=== PATIENT | female | born 2000 | race Caucasian/White ===

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

== ENCOUNTER 2021-01-02 11:50 | Inpatient (IN) | payer OTHER, SELFPAY ==
[2021-01-02] VITALS (11 sets, daily range): BP systolic 99–117; BP diastolic 52–64; PULSE 62–85; TEMP 36.6–37.3; O2SAT 97–99; BMI 24.3
[2021-01-02] MEDS: Lactated Ringers 1,000 ML 50 ML IV (12:45)
[2021-01-02 12:55] LABS: Absolute Lymphocyte Count 1.89 X10^3/uL (0.83-4.51); Absolute Neutrophil Count 8.4 X10^3/uL (2.0-7.7); Basophil# 0.03 X10^3/uL; Basophil% 0.3 % (0-1); Eosinophils% 0.9 % (0-5); Hematocrit 39.3 % (37-47); Hemoglobin 12.9 g/dL (12.0-15.0); Lymphocyte # 1.89 X10^3/ul (0.83-4.51); Lymphocyte % 16.8 % (19-41); Mean Corp Hgb Conc 32.8 g/dL (32-36); Mean Corpuscular Volume 91.4 fL (81-99); Mean Platelet Vol. 11.6 fl (6.2-12.0); Monocyte# 0.73 X10^3/uL; Monocyte% 6.5 % (0-10); NRBC Flagged by Analyzer 0 % (0-5); Neutrophil # 8.36 X10^3/uL (2.7-7.7); Neutrophil % 74.4 % (47-70); Platelet Count 187 K/mm3 (150-450); RBC Distribution Width CV 14.3 % (11.6-14.6); RBC Distribution Width SD 47.8 fl (35.1-43.9); White Blood Count 11.2 K/mm3 (4.4-11.0)
--- NOTE | 2021-01-02 17:31 | HP.PCM.OB_ITS ---
HPI - General General Date of Admission: 01/02/21 HPI Narrative REGINA SOTO, is a 20 F at 39 weeks 3 days who presents in early labor to labor and delivery. While on unit, progressed to 4 cm and electing to stay. Irregular contractions and increased pain. No leakage of fluid or vaginal bleeding. Good movement. uncomplicated and result of failure of control pill. Maternal Data Information Final MARKIE: 01/06/21 Final MARKIE Source: US <20 weeks Gestational age: 39w3d PFSH PFS Home Medications [id number] [] 1 tab PO 01/02/21 [History Last Taken 01/01/21 21:00] Allergy/AdvReac Type Severity Reaction Status Date / Time No Known Allergies Allergy Verified 01/02/21 09:43 Family History Uncle Alzheimer disease Social History (Updated 09/01/20 @ 14:37 by Arlyn Berry PA, PA) number of children: 0 current occupational status: employed current occupation: [employer] Smoking Status: Former smoker alcohol intake: never substance use type: does not use seatbelt use: always do you feel safe at home: Yes History Elective abortions Hx Para 0 Spontaneous abortions Hx # Term Pregnancies Ectopic pregnancies Hx # Pregnancies Multiple births # of living children NST FHR Rate Baby A Baseline: 135 Variability:: Moderate Accelerations:: 15 x 15 Decelerations:: None FHR Category:: Category I Uterine Activity:: Every 3-5 minutes, mild ROS Constitutional Constitutional: Reports systems reviewed and no addt'l complaints, except as documented; Denies headache(s) Eyes Eyes: Denies acute decrease in peripheral vision, blurry vision or change in vision ENT HEENT: Reports systems reviewed and no addt'l complaints, except as documented Cardiovascular Cardiovascular: Denies chest pain or dizziness Respiratory/Chest Respiratory/Chest: Denies cough, dyspnea, dyspnea on exertion, shortness of breath at rest or shortness of breath with exertion Gastrointestinal Gastrointestinal: Denies abdominal pain, diarrhea, nausea or vomiting Genitourinary Genitourinary: Denies abdominal discomfort or movement Musculoskeletal Musculoskeletal: Denies limited range of motion Integumentary Integumentary: Reports systems reviewed and no addt'l complaints, except as documented Neurologic Neurologic: Reports systems reviewed and no addt'l complaints, except as documented Psychiatric Psychiatric: Reports systems reviewed and no addt'l complaints, except as documented Endocrine Endocrinology: Reports systems reviewed and no addt'l complaints, except as documented Hematologic/Lymphatic Hematologic/Lymphatic: Reports systems reviewed and no addt'l complaints, except as documented Allergic/Immunologic Allergic/Immunologic: Reports systems reviewed and no addt'l complaints, except as documented Vital Signs Vital Signs Vital Signs: 01/02/21 09:30 01/02/21 13:49 01/02/21 13:50 Temperature 98.6 F 98.4 F Temperature Source Temporal Pulse Rate 73 78 Blood Pressure 114/63 103/58 L BP Systolic 114 103 BP Diastolic 63 58 Pulse Ox 97 Weight Weight: 155 lb 10.342 oz Body Mass Index (BMI) 24.3 Physical Exam Const alert and oriented x3 General Appearance: cooperative Orientation / Consciousness: awake, oriented to person, oriented to place and oriented to time Exam Limitations: no limitations HEENT normocephalic Head and Scalp: normal to inspection, normocephalic and atraumatic Face and Sinus: normal facial exam Eyes General Eye: normal appearance of both eyes Neck full ROM Chest Chest: symmetrical chest wall rise Resp normal respiratory effort and normal air movement Auscultation: clear to auscultation bilaterally Cardio regular rate, regular rhythm, S1 normal heart sound, S2 normal heart sound, no murmurs, no rub, no gallops and no clicks GI normal to inspection, nondistended, normoactive bowel sounds and non-tender appearance of the vagina normal Bladder / Kidney Exam: no CVA tenderness Manual OB Exam: presentation cephalic, dilated 5cm, effaced 70 and station -1 Back/Spine normal ROM Extremity normal to inspection and full ROM Skin no rashes or lesions noted Neuro oriented x3, CN's II-XII intact bilaterally and moves all extremities Sensorium / Orientation: awake, alert and oriented to person Motor Exam: clonus absent Deep Tendon Reflexes: Rt Patellar (L4): 2+ and Lt Patellar (L4): 2+ Labs Labs Labs: Blood Type O NEGATIVE Antibody Screen NEGATIVE Hct 39.3 % (37-47) Hgb 12.9 g/dL (12.0-15.0) C.trachomatis DNA (PCR) Negative (Negative) GBS positive RPR negative Urine drug screen negative Rubella negative HBsAg negative HIV negative O negative, antibody screen negative GC/CT negative Hep C negative Assessment & Plan (1) Active labor at term: (2) Positive GBS test: PLAN: 1)Admit to labor and delivery 2) IV and routine labs 3) GBS prophylaxis 4) COVID negative 5) Pain management upon request. Would like unmedicated . 6) Discussed with patient early labor upon admission and progression to 5cm. Offered augmentation with pitocin after reviewing r/b/a. Would like to start pitocin for augmentation 7) notified of patient admission 8)Declines LARC
[2021-01-02] MEDS: Oxytocin 30 units/NS 500 ml 30 UNITS/500 ML IV.SOLN IV (17:54)
[2021-01-02] MEDS: Lactated Ringers 1,000 ML 200 ML IV (23:26)
[2021-01-03] VITALS (24 sets, daily range): BP systolic 98–123; BP diastolic 48–66; PULSE 71–121; RESP 16; TEMP 36.6–37.9; O2SAT 96–99
[2021-01-03] MEDS: Oxytocin 30 units/NS 500 ml 30 UNITS/500 ML IV.SOLN 334 UNITS IV (02:38)
--- NOTE | 2021-01-03 03:11 | EX.PCM.OBRPT ---
Assessment & Plan (1) Vaginal delivery: (2) Periurethral laceration, delivered, current hospitalization: Maternal Data Information Final MARKIE: 01/06/21 Final MARKIE Source: US <20 weeks Gestational age: 39w4d Vaginal Delivery Maternal Presentation Maternal Presentation: Active Labor Maternal Presentation: Presented to labor and delivery in early labor. Progressed to active labor. Augmentation with pitocin. Operative Information Date of Procedure: 01/03/21 Pre-Operative Diagnosis: Active Labor Post-Operative Diagnosis: Surgery / Procedure Performed: Spontaneous Vaginal Delivery Type of Anesthesia: Local with 1% Lidocaine Estimated Blood Loss: 200 ml Time of Delivery: 02:37 Findings Description of Procedure: Progressed to complete with strong urge to push. Nitrous for pain management. of viable female infant over bilateral periurethral lacerations, APGARS 8,9. Infant head delivered with CANx1, delivered through, body immediately forthcoming. placed on maternal abdomen, strong cry. Mouth and nares suctioned for secretions. Pitocin started for active 3rd stage management. Placenta delivered with expression, intact via khang, 3 vessel cord. Perineum inspected and revealed bilateral periurethral lacerations, repaired with 3.0vicryl rapide and 1% lidocaine. Fundus firm, hemostasis achieved, EBL 200ml. Vaginal sweep completed, sponge and instrument count correct. Mom and baby stable, planning to breastfeed. Family bonding well. notified of delivery. Amniotic Fluid Description: Clear Placental Delivery Description: Spontaneous Placenta Disposition: [facility] Cord Vessel Description: 3 Vessels Cord Entanglement: Around neck x 1, loose Nuchal Cord Compression: Without compression Infant A Gender: Female (1 minute): 8 (5 minute): 9 Delayed Cord Clamping: Yes Post Vaginal Delivery Medications Given After Delivery: IV Pitocin Episiotomy Description: None Laceration: Periurethral Extnsion/lac Complication Complications: None
[2021-01-03] MEDS: 0.9% Saline Lock 10 ML Syringe IV (05:16)
[2021-01-03] MEDS: Prenatal Vits Tablet 1 TABLET PO (09:40)
[2021-01-04 04:00] VITALS: BP 106/56; PULSE 72; RESP 16; TEMP 37.2; O2SAT 96
[2021-01-04 04:14] VITALS: BP 106/56; PULSE 74; TEMP 37.2; O2SAT 94
[2021-01-04] MEDS: Ibuprofen 600 MG Tablet PO (04:32)
[2021-01-04 08:39] VITALS: TEMP 36.4
[2021-01-04 08:40] VITALS: BP 113/66; PULSE 85
[2021-01-04 08:50] VITALS: BP 113/66; PULSE 81; RESP 14; TEMP 36.4; O2SAT 98
--- NOTE | 2021-01-04 10:14 | PCM.PN.BLA ---
Progress Note Pain well controlled, average lochia. Urinating and tolerating regular diet without difficulty. Has had a bowel movement without difficulty. Physical Exam Const alert and no apparent distress Narrative: Fundus firm, below umbilicus. Assessment & Plan Assessment/Plan (1) Periurethral laceration, delivered, current hospitalization: (2) Vaginal delivery: PLAN: PPD#1 doing well routine care and doing well desires d/c home today
--- NOTE | 2021-01-04 10:19 | PCM.DC.SUM ---
Providers Date of Admission: 01/02/21 Primary Care Physician: Dr. Crys Armenta MD Reason For Visit: VAG Diagnosis Discharge Diagnosis (1) Periurethral laceration, delivered, current hospitalization: Status: Acute Code(s): O71.82 - Other specified trauma to perineum and vulva (2) Vaginal delivery: Status: Acute Code(s): O80 - Encounter for full-term uncomplicated delivery Medications at Discharge Home Medications [id number] 1 tab PO 01/02/21 ibuprofen 600 mg PO Q6H PRN PRN #60 tablet 01/04/21 Weight / BMI Weight Weight: 70.6 kg Body Mass Index (BMI) 24.3 ABG / Lab / Microbiology Data Result Diagrams: 01/02/21 12:45 Microbiology: Microbiology 01/02/21 12:35 Mucosa - Nose SARS-CoV-2 Antigen (Rapid) - Final D/C Instructions May resume sexual activity in: 6 weeks Please Follow Up With: Blessing Michael MD When: Follow up with our office in 1-2 and 6 weeks or as needed. [phone] Meaningful Use Info Meaningful Use Diagnoses (Choose all that apply): None applicable Discharge Plan Admission Admit Date/Time: 01/02/21 11:50 Primary Reason for Your Visit: labor and delivery Attending Provider: Jeanette Keane Primary Care Provider: Crys Armenta Instructions Patient Instructions: After a Vaginal Discharge Orders/Prescriptions Prescriptions: New ibuprofen [ibuprofen] 600 MG tablet 600 mg PO Q6H PRN PRN (Reason: pain) Qty: 60 RF: 1 Continued [id number]-[id number]-Eg-FA 1 mg Tablet 1 tab PO RF: 0 Referrals / Follow Up: Crys Armenta MD [Primary Care Provider] - Disposition Disposition (needs filled in before D/C Order can be placed): Home, self care
--- NOTE | 2021-01-09 10:11 | CM.ED ---
JAILYN Note Late Entry for 01/04/21 JAILYN called Rama in [facility]. Rama was public safety officer. She said that patient's RN voiced no issues or concerns with patient. JAILYN remained available all day for support or resources if needed. JAILYN did not receive any follow up calls from patients RN or WP RN. Plan: Home [facility]
== END 2021-01-04 12:00 | disposition home or self-care (01) | DRG 807 ==
LOC: WPOUT 11:53 → WP 11:53
PROVIDERS: Admitting Provider Advanced Practice Midwife; PCP Pediatrics; Referring Provider Advanced Practice Midwife; Visit Provider Advanced Practice Midwife
DX: O99.824 Streptococcus B carrier state complicating childbirth (principal); O69.81X0 Labor and delivery complicated by cord around neck, without compression, not applicable or unspecified; O71.82 Other specified trauma to perineum and vulva; Z20.822 Contact with and (suspected) exposure to COVID-19; Z87.891 Personal history of nicotine dependence; Z3A.39 39 weeks gestation of pregnancy; Z37.0 Single live birth
CPT/HCPCS: 59025; 59050; 85025; 85461; 86850; 86870; 86900; 86901; 87426; 90384; 99218; J7120; A4216; G0378; J2790

== ENCOUNTER 2022-03-29 23:22 | Emergency (ER) | payer OTHER, SELFPAY ==
[2022-03-29 23:23] VITALS: BP 110/52; PULSE 69; RESP 18; TEMP 36.6; O2SAT 98; BMI 19.5
--- NOTE | 2022-03-29 23:53 | EX.ED.GENINJ ---
HPI History of Present Illness Chief Complaint: Bite Informant: patient Onset/Context/Timing Onset: Today Mechanism/Context: other (Dog bite) Quality of Pain: Dull and Aching Location: Right cheek and chin Worsened by: Nothing Relieved by: Nothing Associated Symptoms Associated Symptoms: Negative for Weakness, Loss of function, Inability to ambulate, Loss of consciousness or Amnesia Narrative Narrative: Patient presents with a dog bite to her chin and right cheek that occurred today. Patient states she was bitten by her friend's dog. Patient states the dog was acting normally before she was bitten and after she was bitten. Patient states the dog's immunizations were up-to-date. Patient states her last tetanus was within 5 years. Patient states the bite angie on the right cheek appear to go fairly deep. Patient is unsure if she needed sutures. Patient admits to some tingling around the wound. Patient denies any other injuries. [facility] Medical History (Updated 03/30/22 @ 00:01 by Nisha Hayes) Anemia Physical exam, pre-employment Home Medications kclkijap-oaw-Zr-FA 1 mg tablet 1 tab PO 01/02/21 [History Last Taken 01/01/21 21:00] amoxicillin 875 mg-potassium clavulanate 125 mg tablet 875 mg PO Q12H #20 TABLETS 03/29/22 [Rx Last Taken Unknown] Allergy/AdvReac Type Severity Reaction Status Date / Time No Known Allergies Allergy Verified 03/29/22 23:26 Family History Uncle Alzheimer disease Surgical History no surgical history no surgical history Social History number of children: 0 current occupational status: employed current occupation: [employer] Smoking Status: Former smoker alcohol intake: never substance use type: does not use seatbelt use: always do you feel safe at home: Yes ROS ROS ED Constitutional Constitutional ED: Denies chills or fever(s) Eyes Eyes: Denies blurry vision or change in vision ENT ENT ED: Denies rhinorrhea or sore throat Cardiovascular Cardiovascular: Denies chest pain or palpitations Respiratory/Chest Respiratory/Chest: Denies cough or dyspnea Gastrointestinal Gastrointestinal: Denies nausea or vomiting Genitourinary Genitourinary ED: Denies dysuria or hematuria Musculoskeletal Musculoskeletal: Denies back pain or neck pain Integumentary Denies abscess or rash Neurologic Neurologic: Denies headache(s) or weakness Allergic/Immunologic Allergic/Immunologic ED: Denies mouth swelling or urticaria EXAM Physical Exam Const Vital Signs: 03/29/22 23:23 Temperature 97.8 F Temperature Source Temporal Pulse Rate 69 Respiratory Rate 18 Blood Pressure 110/52 L Blood Pressure Mean 71 Pulse Ox 98 Oxygen Delivery Method Room Air Positive well nourished and well developed General Appearance ED: well developed and NAD HEENT HEENT Narrative: There is a small puncture wound noted over the anterior aspect of the chin. There is minimal gapping of the wound margins. There is no bleeding. There is no edema or erythema. There is no bony crepitance or step-off. There is a 5 mm curvilinear laceration over the right cheek. There is minimal gapping of the wound margins. There is minimal bleeding. There are no foreign bodies. There is no erythema or edema around the laceration. Oral mucosa is pink and moist. There are no intraoral lacerations. Eyes PERRL and EOMs intact bilaterally Neck full ROM Neuro oriented x3, CN's II-XII intact bilaterally, moves all extremities, no focal motor deficits and no sensory deficits noted Ramiro Coma Scale: document GCS findings Spontaneous Obeys Commands Oriented 15 Sensorium / Orientation: alert Motor Exam: strength 5/5 throughout Psych mental status grossly normal PROC Procedures Lacerations Right cheek: Length: 0.5 cm Depth: Sub Q Shape: Linear Prep: Sterile Conditions and Chlorhexadine Laceration repair: Dermabond MDM MDM MDM Narrative Medical decision making narrative: The right cheek laceration was cleaned with chlorhexidine prep. The wound was closed with Dermabond skin adhesive. Patient tolerated the procedure well. Patient was instructed to keep the area clean and dry. Patient was given a dose of Augmentin here. Patient was given a prescription for Augmentin. Patient was instructed to follow-up with her primary care physician in 5 to 7 days for wound recheck. Patient understood and was agreeable with the plan. All questions were answered. Discharge Plan Triage Chief Complaint: Bite ED Provider: Jd Pardo Dx/Rx/DC Orders Clinical Impression: Dog bite of cheek, Dog bite of chin Instructions: ED Dog Bite, ED Laceration, Face: Skin Glue Prescriptions: New amoxicillin-pot clavulanate [amoxicillin-pot clavulanate] 875-125 mg tablet 875 mg PO Q12H Qty: 20 0RF No Action [id number]-[id number]-FA 1 mg Tablet 1 tab PO Primary Care Provider: Crys Armenta Referrals: Crys Armenta MD [Primary Care Provider] - 5-7 Days Disposition Disposition: Home, Self Care
[2022-03-30] MEDS: Amox/Clavulanate 875 MG Tablet PO (00:12)
[2022-03-30 00:16] VITALS: BP 114/71; PULSE 65; RESP 17; O2SAT 99
== END 2022-03-30 00:17 | disposition home or self-care (01) ==
PROVIDERS: Emergency Provider Emergency Medicine; PCP Pediatrics; Visit Provider Emergency Medicine
DX: S01.451A Open bite of right cheek and temporomandibular area, initial encounter (principal); S01.83XA Puncture wound without foreign body of other part of head, initial encounter; W54.0XXA Bitten by dog, initial encounter; Z87.891 Personal history of nicotine dependence
CPT/HCPCS: 12011; 99283

== ENCOUNTER 2022-11-04 06:18 | Emergency (ER) | payer OTHER, SELFPAY ==
[2022-11-04 06:18] VITALS: BP 121/67; PULSE 74; RESP 16; TEMP 37; O2SAT 100; BMI 19.5
[2022-11-04 06:59] LABS: Mucous, Urine 0 SEEN /hpf (<or=2+)
--- NOTE | 2022-11-04 06:59 | ED.VIS.FEGU ---
HPI HPI - Female History of Present Illness Chief Complaint: Complaint Informant: patient Narrative Narrative: Patient presents concerned that she has a UTI or a kidney infection that is incompletely around successfully treated. She states 1.5-2 weeks ago she was having discomfort in her low back and hematuria. She went to the now urgent care clinic and was prescribed cephalexin for 1 week, though symptoms went away while she was on the cephalexin, but while on it she developed dysuria. She denies any urinary frequency, vomiting, fevers or chills. She has developed no other urinary symptoms. After finishing the cephalexin the dysuria is still there, she admits she does have some discomfort when she wipes, and now she feels like the left side of her abdomen is sore and swollen. She does not have any discomfort in her low back anymore. Occasional nausea no vomiting. She attributes the discomfort in her low back, nonlateralizing, to lifting lots of things at work. She denies any vaginal discharge. States she has had some vaginal spotting lately, she has had bleeding off and on since she had her Norplant placed in June. [facility] Medical History Anemia Physical exam, pre-employment Home Medications [id number]-[id number]-FA 1 mg tablet 1 tab PO 01/02/21 [History Last Taken 01/01/21 21:00] amoxicillin 875 mg-potassium clavulanate 125 mg tablet 875 mg PO Q12H #20 TABLETS 03/29/22 [Rx Last Taken Unknown] doxycycline monohydrate 100 mg capsule 100 mg PO BID #14 CAPSULES 11/04/22 [Rx Last Taken Unknown] phenazopyridine 200 mg tablet (Pyridium) 200 mg PO BID PRN PRN Pain #8 tabs 11/04/22 [Rx Last Taken Unknown] Allergy/AdvReac Type Severity Reaction Status Date / Time No Known Allergies Allergy Verified 03/29/22 23:26 Family History Uncle Alzheimer disease Social History number of children: 0 current occupational status: employed current occupation: [employer] Smoking Status: Never smoker alcohol intake: never substance use type: does not use seatbelt use: always do you feel safe at home: Yes ROS ROS ED Constitutional Constitutional ED: Denies chills or fever(s) Eyes Eyes: Denies change in vision or diplopia ENT ENT ED: Denies rhinorrhea or sore throat Cardiovascular Cardiovascular: Denies chest pain or palpitations Respiratory/Chest Respiratory/Chest: Denies cough or dyspnea Gastrointestinal Gastrointestinal: Reports as per HPI, abdominal pain and nausea; Denies diarrhea or vomiting Genitourinary Genitourinary ED: Reports as per HPI, dysuria and low back pain; Denies flank pain, hematuria or urinary frequency Musculoskeletal Musculoskeletal: Denies back pain or neck pain Integumentary Denies abscess or rash Neurologic Neurologic: Denies headache(s), paresthesias or weakness Psychiatric Psychiatric: Denies anxiety or suicidal thoughts EXAM Physical Exam Const Vital Signs: 11/04/22 06:18 Temperature 98.6 F Temperature Source Temporal Pulse Rate 74 Respiratory Rate 16 Blood Pressure 121/67 H Blood Pressure Mean 85 Pulse Ox 100 Oxygen Delivery Method Room Air Positive well nourished and well developed Constitutional Narrative: Well-appearing thin female of stated age General Appearance ED: well developed and NAD HEENT Reports moist mucous membranes normocephalic and atraumatic Eyes PERRL and EOMs intact bilaterally Neck full ROM and supple Resp normal respiratory effort and clear to auscultation bilaterally Cardio regular rate, regular rhythm and no murmurs GI non-distended GI Narrative: Subjective mild tenderness diffusely, nonfocal, no worse on the left than the right. No guarding or rebound tenderness. No focal objective swelling or distention. Auscultation: normoactive bowel sounds Palpation: soft Narrative: External exam, chaperoned by RN, normal, mild tenderness at labia majora but there normal-appearing without any obvious external erythema or swelling or abscess. Normal clitoris. No active discharge. Back/Spine no CVA tenderness General Back: other FROM Thoracic Spine / Upper Back: Negative for thoracic spinal tenderness Lumbar Spine / Lower Back: Negative for lumbar spinal tenderness Extremity normal to inspection General Extremety ED: Negative for edema, pulses abnormal or tenderness General Extremity: Negative for edema or pulses abnormal Neuro oriented x3, CN's II-XII intact bilaterally and no sensory deficits noted Sensorium / Orientation: awake and alert Motor Exam: strength 5/5 throughout Psych mental status grossly normal Skin no rashes or lesions noted and no wounds MDM MDM MDM Narrative Medical decision making narrative: We obtained a urinalysis and a , the latter was negative, the urinalysis is consistent with infection showing significant leukocyte esterase and pyuria and bacteria. This was sent for culture, I also sent off gonorrhea and chlamydia which she does not have a history of but she is sexually active and states that she has dyspareunia, which is why we did the external exam, see above. It was unremarkable. Urethritis in the differential, vaginitis in the differential, but with her symptoms and urinalysis results I think reasonable to treat empirically with a different antibiotic, I will put her on doxycycline which will cover chlamydia as well, GC and chlamydia is pending and she will also be prescribed Pyridium. She is comfortable with that overall plan will follow-up with her [employer] if she does not get better. Lab Data Attestation: I reviewed the patient's lab results. Labs: Laboratory Results - last 24 hr 11/04/22 06:45 Urine Color Yellow Urine Clarity Sl. Cloudy Urine pH 7.0 Ur Specific [place] 1.015 Urine Protein Negative Urine Glucose (UA) Normal Urine Ketones Negative Urine Occult Blood 250 H Urine Nitrite Negative Urine Bilirubin Negative Urine Urobilinogen Normal Ur Leukocyte Esterase 500 H Urine RBC 5-10 SEEN Urine WBC 10-25 SEEN Ur Squamous Epith Cells 0-5 SEEN Amorphous Sediment 3+ Urine Bacteria 2+ Urine Mucus 0 SEEN Urine Test Negative Discharge Plan Triage Chief Complaint: Complaint ED Provider: Steve Villatoro Dx/Rx/DC Orders Clinical Impression: Acute cystitis Instructions: UTIs Women Prescriptions: New phenazopyridine [Pyridium] 200 mg tablet 200 mg PO BID PRN PRN (Reason: Pain) Qty: 8 0RF doxycycline monohydrate 100 mg capsule 100 mg PO BID Qty: 14 0RF No Action ectuqjuf-[id number]-[id number]-FA 1 mg Tablet 1 tab PO amoxicillin-pot clavulanate [amoxicillin-pot clavulanate] 875-125 mg tablet 875 mg PO Q12H Qty: 20 0RF Primary Care Provider: Crys Armenta Referrals: Crys Armenta MD [Primary Care Provider] - Blessing Michael MD [Med Staff - Active Staff] - 3-5 Days if not improving Disposition Disposition: Home, Self Care
[2022-11-04 07:07] LABS: Color, Urine Yellow (Yellow); Glucose, Dipstick Normal (Normal); Ketone-Dipstick Negative (Negative); Leukocyte Esterase-Dipstick 500 /ul (Negative); Nitrite-Dipstick Negative (Negative); Occult Blood-Urine 250 /ul (Negative); Protein-Dipstick Negative (Negative); Specific Gravity, Urine 1.015 (1.002-1.030); Urine Bilirubin Dipstick Negative (Negative); Urine Clarity Sl. Cloudy (Clear); Urine Urobilinogen Normal (Normal)
[2022-11-04 07:08] LABS: Internal QC Validated? YES +Cl - CLEAR BKGD; Pregnancy, Urine Negative Negative
[2022-11-04 07:14] LABS: Amorphous Sediment 3+; Bacteria 2+ /hpf (None Seen); Red Blood Cells-Urine 5-10 SEEN /hpf (0-5); Squamous Epithelial Cells - UA 0-5 SEEN /hpf (5-10); White Blood Cells 10-25 SEEN /hpf (0-5)
[2022-11-04 07:53] VITALS: BP 138/77; PULSE 68; RESP 15; TEMP 36.4; O2SAT 98
[2022-11-04 09:30] LABS: Chlamydia Trachomatis by PCR Negative (Negative); Neisserai gonorrhoeae by PCR Negative (Negative); Probe Check PASS; Sample Adequacy Control PASS; Specimen Processing Control PASS
== END 2022-11-04 07:54 | disposition home or self-care (01) ==
PROVIDERS: Student in an Organized Health Care Education/Training Program; Emergency Provider Emergency Medicine; PCP Pediatrics; Referring Provider Emergency Medicine; Visit Provider Emergency Medicine
DX: N30.00 Acute cystitis without hematuria (principal); R82.81 Pyuria
CPT/HCPCS: 81001; 81025; 87086; 87088; 87491; 87591; 99282

== ENCOUNTER 2023-02-11 18:07 | Emergency (ER) | payer BC, SELFPAY ==
[2023-02-11 18:08] VITALS: BP 113/64; PULSE 112; RESP 18; TEMP 36.5; O2SAT 99; BMI 17.9
--- NOTE | 2023-02-11 18:31 | EDS_ITS ---
HPI <CARMELLA Farfan - Last Filed: 02/11/23 18:37> History of Present Illness Chief Complaint: Abd Pain Narrative Narrative: 5 days ago patient started to have white vaginal discharge and low back pain. She went to urgent care yesterday and they sent STI swabs for testing. They prescribed Diflucan for possible yeast infection. Today she developed genital sores and it hurts when the urine hits them. She denies fever, chills, nausea, vomiting, or flank pain. PFSH <CARMELLA Farfan - Last Filed: 02/11/23 18:37> FORMERLY [facility], 1928–1983 Medical History Anemia Physical exam, pre-employment Home Medications [id number] 1 mg tablet 1 tab PO 01/02/21 [History Last Taken 01/01/21 21:00] amoxicillin 875 mg-potassium clavulanate 125 mg tablet 875 mg (0.875 x 875-125 mg) PO Q12H #20 TABLETS 03/29/22 [Rx Last Taken Unknown] doxycycline monohydrate 100 mg capsule 100 mg PO BID #14 CAPSULES 11/04/22 [Rx Last Taken Unknown] phenazopyridine 200 mg tablet (Pyridium) 200 mg PO BID PRN PRN Pain #8 tabs 11/04/22 [Rx Last Taken Unknown] doxycycline hyclate 100 mg capsule 100 mg PO BID 7 days #14 caps 02/11/23 [Rx Last Taken Unknown] valacyclovir 1 gram tablet (Valtrex) 1,000 mg PO BID 10 days #20 tabs 02/11/23 [Rx Last Taken Unknown] Allergy/AdvReac Type Severity Reaction Status Date / Time No Known Allergies Allergy Verified 02/11/23 18:12 Family History Uncle Alzheimer disease Social History number of children: 0 current occupational status: employed current occupation: [employer] Smoking Status: Never smoker alcohol intake: never substance use type: does not use seatbelt use: always do you feel safe at home: Yes ROS <CARMELLA Farfan - Last Filed: 02/11/23 18:37> ROS ED ROS Narrative Constitutional: Negative for fever, chills, malaise. GI: Negative for abdominal pain, nausea, vomiting. : Negative for hematuria or frequency. Skin: Positive for rash. EXAM <CARMELLA Farfan - Last Filed: 02/11/23 18:37> Physical Exam Narrative Exam Narrative: CONST: Patient sitting in no acute distress. EYES: Normal inspection. NECK: Normal inspection. RESP: No respiratory distress, CTAB. CVS: Regular rate and rhythm, no murmur, no gallop. ABD: Soft and nontender, no guarding or rebound, nondistended. Back: Normal inspection, no CVA tenderness. : Labia minor are edemetous with vesicular lesions on red base throughout the genital area consistent with herpes simplex virus. White discharge at the vaginal introitus. SKIN: Color normal, no rash, warm, dry, intact. EXTREMITIES: Normal appearance, no pedal edema. NEURO: Oriented x4. PSYCH: Normal affect. Const Vital Signs: 02/11/23 18:08 Temperature 97.7 F L Temperature Source Temporal Pulse Rate 112 H Respiratory Rate 18 Blood Pressure 113/64 Blood Pressure Mean 80 Pulse Ox 99 Oxygen Delivery Method Room Air <Dr. Cal Ibarra MD - Last Filed: 02/11/23 18:48> Physical Exam Const Vital Signs: 02/11/23 18:08 Temperature 97.7 F L Temperature Source Temporal Pulse Rate 112 H Respiratory Rate 18 Blood Pressure 113/64 Blood Pressure Mean 80 Pulse Ox 99 Oxygen Delivery Method Room Air MDM <CARMELLA Farfan - Last Filed: 02/11/23 18:37> [facility] MDM Narrative Medical decision making narrative: History gathered from patient and mom Patient has genital pain, rash and vaginal discharge. Clinical exam has diffuse vesicular rash that look consistent with herpes simplex virus. She also has white discharge. Urgent care sent out STI swabs yesterday and test was negative so these do not need repeated but I will empirically treat her with Susy acyclovir, Rocephin and doxycycline. I discussed she needs to tell her sexual partners. She has no abdominal tenderness, no flank tenderness, no systemic symptoms so I do not think she needs an ultrasound or further emergent work-up. Patient is established with [facility] and will follow-up with them. She was discharged in stable condition. Differential: Herpes simplex virus, gonorrhea, chlamydia, yeast infection, PID <Dr. Cal Ibarra MD - Last Filed: 02/11/23 18:48> MDM MDM Narrative Medical decision making narrative: History gathered from patient and mom Patient has genital pain, rash and vaginal discharge. Clinical exam has diffuse vesicular rash that look consistent with herpes simplex virus. She also has white discharge. Urgent care sent out STI swabs yesterday and test was negative so these do not need repeated but I will empirically treat her with Susy acyclovir, Rocephin and doxycycline. I discussed she needs to tell her sexual partners. She has no abdominal tenderness, no flank tenderness, no systemic symptoms so I do not think she needs an ultrasound or further emergent work-up. Patient is established with [facility] and will follow-up with them. She was discharged in stable condition. Differential: Herpes simplex virus, gonorrhea, chlamydia, yeast infection, PID Stacey: Patient was seen by me. I agree with the above extenders note, note was done by both me and the PA as I may have edited some of the above. Patient was seen by me, I evaluated her, she has herpetic lesions consistent with herpes simplex. She also has what seems like a superinfection she has vaginal discharge. She is not tolerating a pelvic exam at this time due to the pain. Regardless we will treat for both. Discharge Plan Triage Chief Complaint: Abd Pain ED Midlevel Provider: Shahnaz Tsai ED Provider: Cal Ibarra Dx/Rx/DC Orders Clinical Impression: Vaginal discharge, Genital herpes simplex Instructions: Understanding STIs, Herpes: Treatment with Medication Prescriptions: New doxycycline hyclate 100 mg capsule 100 mg PO BID 7 Days Qty: 14 0RF valacyclovir [Valtrex] 1 gram tablet 1,000 mg PO BID 10 Days Qty: 20 1RF No Action [id number] 1 mg Tablet 1 tab PO amoxicillin-pot clavulanate [amoxicillin-pot clavulanate] 875-125 mg tablet 875 mg PO Q12H Qty: 20 0RF phenazopyridine [Pyridium] 200 mg tablet 200 mg PO BID PRN PRN (Reason: Pain) Qty: 8 0RF doxycycline monohydrate 100 mg capsule 100 mg PO BID Qty: 14 0RF Primary Care Provider: Care Physician,No Primary Activity Restrictions/Additional Instructions: Take all of the prescribed medication. You can take the next dose of valtrex (valacyclovir) which is the antiviral medicine tonight. Take ibuprofen and tylenol for pain and follow up with your OBGYN. Disposition Disposition: Home, Self Care
[2023-02-11] MEDS: Doxycycline 100 MG CAPSULE PO (18:47)
[2023-02-11] MEDS: Acyclovir 200 MG Capsule 400 MG PO (18:47)
[2023-02-11] MEDS: Ibuprofen 600 MG Tablet PO (18:47)
[2023-02-11] MEDS: Ceftriaxone 500 MG Vial IM (18:48)
== END 2023-02-11 19:10 | disposition home or self-care (01) ==
PROVIDERS: Emergency Provider Emergency Medicine; Visit Provider Emergency Medicine
DX: A60.09 Herpesviral infection of other urogenital tract (principal); N89.8 Other specified noninflammatory disorders of vagina
CPT/HCPCS: 96372; 99283

== ENCOUNTER 2023-10-17 20:57 | Emergency (ER) | payer BC, SELFPAY ==
[2023-10-17 20:58] VITALS: BP 135/75; PULSE 82; RESP 20; TEMP 36.9; O2SAT 100; BMI 19.1
[2023-10-17 20:59] VITALS: BP 135/75; PULSE 84; RESP 20; TEMP 36.9; O2SAT 100
--- NOTE | 2023-10-17 21:13 | EX.ED.VIS.UR ---
HPI HPI - URI History of Present Illness Chief Complaint: Chest Other Narrative Narrative: 23-year-old female present with cough, congestion, sputum production x 3 to 4 days. She states she been sick with something on and off for about 3 weeks. She states she has been tested for COVID-19 twice. She was not tested for influenza or RSV. She states that her symptoms have come and gone. Currently she has not had a fever since . She is not short of breath. She states it hurts when she coughs. She reports that she was put on amoxicillin for pneumonia from the urgent care few days ago and this is not helping. Patient does not have nausea or vomiting. ROS [facility] ED Constitutional Constitutional ED: Reports chills and fever(s); Denies sweats Eyes Eyes: Denies blurry vision or change in vision ENT ENT ED: Denies ear pain or sore throat Cardiovascular Cardiovascular: Denies chest pain, palpitations or racing heartbeat Respiratory/Chest Respiratory/Chest: Reports cough, dyspnea and sputum Gastrointestinal Gastrointestinal: Denies abdominal pain, constipation, diarrhea, nausea or vomiting Genitourinary Genitourinary ED: Denies dysuria, hematuria or urinary frequency Musculoskeletal Musculoskeletal: Denies arthralgias, myalgias or neck pain Integumentary Denies abscess, Abrasions or rash Neurologic Neurologic: Denies headache(s), paresthesias or weakness Psychiatric Psychiatric: Denies anxiety, depression, suicidal ideation or suicidal thoughts Endocrine Endocrinology: Denies polydipsia or polyuria PFSH [facility] Medical History Anemia Physical exam, pre-employment Home Medications amoxicillin 875 mg-potassium clavulanate 125 mg tablet 875 mg (0.875 x 875-125 mg) PO Q12H #20 TABLETS 03/29/22 [Rx Last Taken Unknown] levofloxacin 500 mg tablet 500 mg PO DAILY #7 tabs 10/17/23 [Rx Last Taken Unknown] Allergy/AdvReac Type Severity Reaction Status Date / Time No Known Allergies Allergy Verified 10/17/23 20:57 Family History Uncle Alzheimer disease Social History number of children: 0 current occupational status: employed current occupation: [employer] Smoking Status: Current every day smoker tobacco type: e-cigarettes alcohol intake: never substance use type: does not use seatbelt use: always do you feel safe at home: Yes EXAM Physical Exam Const Vital Signs: 10/17/23 20:58 10/17/23 20:59 Temperature 98.5 F 98.5 F Temperature Source Temporal Temporal Pulse Rate 82 84 Respiratory Rate 20 H 20 H Blood Pressure 135/75 H 135/75 H Blood Pressure Mean 95 95 Pulse Ox 100 100 Positive well nourished General Appearance ED: NAD; Negative for pallor HEENT Reports moist mucous membranes normocephalic and atraumatic Throat: posterior oropharynx normal Resp normal respiratory effort and clear to auscultation bilaterally Auscultation: Negative for rales, rhonchi or wheezes Cardio Rate: regular rate Rhythm: regular rhythm Extremity normal to inspection Neuro oriented x3 and CN's II-XII intact bilaterally Sensorium / Orientation: alert Psych mental status grossly normal Skin General Skin Exam: Negative for jaundice or pallor MDM MDM MDM Narrative Medical decision making narrative: Patient presenting with cough and burning when she does cough in her chest. Patient has not had a fever since . It is possible she could have had COVID or influenza over the last week however she is outside the treatment window for these. She has been on amoxicillin without improvement although her vital signs are stable. She is 100% on room air. She is afebrile. She is well-appearing. Lungs are clear to auscultation bilaterally. Heart regular rate and rhythm. I did offer chest x-ray for the patient versus just treating empirically and switching her medication to Levaquin to cover pneumonia and she is amenable to switching her antibiotic. Return precautions are discussed. She given first dose in the ER. Impression: 1. Pneumonia Lab Data Attestation: I reviewed the patient's lab results. Discharge Plan Triage Chief Complaint: Chest Other ED Provider: Fabián Smith Dx/Rx/DC Orders Instructions: ED Pneumonia (Adult) Prescriptions: New levofloxacin 500 mg tablet 500 mg PO DAILY Qty: 7 0RF No Action amoxicillin-pot clavulanate [amoxicillin-pot clavulanate] 875-125 mg tablet 875 mg PO Q12H Qty: 20 0RF Primary Care Provider: Care Physician,No Primary Referrals: [facility] [Provider Group] - 3-5 Days Care Physician,No Primary [Primary Care Provider] - Disposition Disposition: Home, Self Care
[2023-10-17] MEDS: levoFLOXacin IV 500 MG/100 ML BAG 100 MG IV (21:34)
[2023-10-17 22:38] VITALS: BP 102/63; PULSE 73; RESP 18; TEMP 36.7; O2SAT 100
== END 2023-10-17 22:40 | disposition home or self-care (01) ==
LOC: ED 21:21
PROVIDERS: Emergency Provider Student in an Organized Health Care Education/Training Program; Visit Provider Student in an Organized Health Care Education/Training Program
DX: J18.9 Pneumonia, unspecified organism (principal); F17.290 Nicotine dependence, other tobacco product, uncomplicated
CPT/HCPCS: 96365; 99282; J7050; A4216